=== PATIENT | male | born 1935 | race Asian ===

== ENCOUNTER 2018-11-07 10:38 | Outpatient (CLI) | payer MEDICARE, OTHER ==
--- NOTE | 2018-11-07 13:39 | XRAY Report ---
Reason: RT HEEL PAIN Procedure Date: 11/07/2018 Accession Number: [id number] / [id number] Procedure: XR - Calcaneus RT CPT Code: FULL RESULT: EXAM: RIGHT CALCANEUS RADIOGRAPHY EXAM DATE: 11/07/2018 10:45 AM. CLINICAL HISTORY: Right heel pain. COMPARISON: None. TECHNIQUE: 2 views. FINDINGS: Bones: Normal. No fractures or bone lesions. Joints: Normal. No subluxations. Soft Tissues: Calcified anterior tibial and posterior tibial arteries as well as dorsalis pedis and deep arch, peripheral arterial disease. IMPRESSION: Peripheral arterial disease. RADIA
== END 2018-11-07 10:39 | disposition home or self-care (01) ==
LOC: DI 10:38
PROVIDERS: ATTEND Podiatrist
DX: I70.208 Unspecified atherosclerosis of native arteries of extremities, other extremity (principal)

== ENCOUNTER 2018-11-24 09:04 | Outpatient (CLI) | payer MEDICARE, OTHER ==
--- NOTE | 2018-11-26 16:41 | Ultrasound Report ---
Reason: PAD BL Procedure Date: 11/24/2018 Accession Number: [id number] / [id number] Procedure: US - Duplex Lwr Ext Arterial Bilat CPT Code: FULL RESULT: EXAM: BILATERAL LOWER EXTREMITY ARTERIAL DOPPLER ULTRASOUND EXAM DATE: 11/24/2018 11:01 AM. CLINICAL HISTORY: Crampy leg pain. Peripheral arterial disease. COMPARISON: None. TECHNIQUE: Real-time sonographic vascular imaging was performed by the hog operator, utilizing color-flow, Doppler flow, and spectral analysis. Multiple account maintenance representative static images were saved for review. FINDINGS: Right Leg: CONTACT ASSEMBLER: PSV 72 cm/sec. Biphasic waveform. PSFA: PSV 76 cm/sec. Biphasic waveform. MSFA: PSV 72 cm/sec. Biphasic waveform. DSFA: PSV 76 cm/sec. Biphasic waveform. PFA: PSV 60 cm/sec. Biphasic waveform. POP: PSV 67 cm/sec. Biphasic waveform. DOMINIQUE: PSV 62 cm/sec. Biphasic waveform. WINE MANAGER: PSV 96 cm/sec. Biphasic waveform. PER: PSV 17 cm/sec. Biphasic waveform. DPA: PSV 86 cm/sec. Triphasic waveform. Left Leg: CONTACT ASSEMBLER: PSV 81 cm/sec. Biphasic waveform. PSFA: PSV 80 cm/sec. Biphasic waveform. MSFA: PSV 88 cm/sec. Biphasic waveform. DSFA: PSV 63 cm/sec. Biphasic waveform. PFA: PSV 61 cm/sec. Biphasic waveform. POP: PSV 60 cm/sec. Biphasic waveform. DOMINIQUE: PSV 62 cm/sec. Biphasic waveform. WINE MANAGER: PSV 96 cm/sec. Biphasic waveform. PER: PSV 62 cm/sec. Biphasic waveform. DPA: PSV 79 cm/sec. Biphasic waveform. IMPRESSION: No flow-limiting stenosis in either lower extremity arterial system. RADIA
== END 2018-11-24 09:05 | disposition home or self-care (01) ==
LOC: DI 09:04
PROVIDERS: ATTEND Podiatrist
DX: I73.9 Peripheral vascular disease, unspecified (principal)
CPT/HCPCS: 93925

== ENCOUNTER 2021-03-21 17:22 | Emergency (ER) | payer MEDICARE, OTHER ==
--- NOTE | 2021-03-21 17:46 | ED Physician Documentation ---
PD HPI ABD PAIN - Stated complaint Stated Complaint: ABD PX - Chief complaint Chief Complaint: Abd Pain - History obtained from History obtained from: Patient, Family - Additional information Additional information: 86-year-old gentleman with history of Crohn's disease, he had a bowel obstruction roughly 20 years ago necessitating ex lap and bowel resection. He has had a few medically managed obstruction since then. He was doing very well on sulfasalazine but it sounds like it was recently taken off the market or it is not being manufactured anymore. He was switched over to mesalamine which she is a little bit upset about because he is allergic to it. The last 4 days may be a week he has developed distended abdomen with right lower quadrant pain and decreased flatus but did have a small bowel movement today. Review of Systems Ten Systems: 10 systems reviewed and negative Constitutional: denies: Fever, Chills Ears: reports: Reviewed and negative Nose: reports: Reviewed and negative Throat: reports: Reviewed and negative Cardiac: reports: Reviewed and negative PD PAST MEDICAL HISTORY - Past Medical History Cardiovascular: None Respiratory: None Endocrine/Autoimmune: HyPOthyroidism GI: Crohn's disease : None HEENT: Chronic sinusitis Psych: None Musculoskeletal: None Derm: None - Past Surgical History Past Surgical History: Yes General: Appendectomy, Bowel surgery - Present Medications Home Medications: Ambulatory Orders Medication Instructions Recorded Confirmed Folic Acid 1 tab PO DAILY 05/21/15 03/22/21 Iron,Carb/Vit C/Vit B12/Folic 1 tab PO DAILY 05/21/15 03/22/21 [Iron 100 Plus Tablet] Levothyroxine [Synthroid] 1 tab DAILY 05/21/15 03/22/21 Cholecalciferol (Vitamin D3) 1 cap PO DAILY 03/22/21 03/22/21 [Vitamin D3] Cyanocobalamin (Vitamin B-12) 2,000 mcg PO DAILY 03/22/21 03/22/21 [Vitamin B-12] Mesalamine [Lialda] 1 tab PO DAILY 03/22/21 03/22/21 - Allergies Allergies/Adverse Reactions: Allergies Allergy/AdvReac Type Severity Reaction Status Date / Time mesalamine [From Pentasa] AdvReac Unknown Verified 03/21/21 17:28 - Social History Does the pt smoke?: No Smoking Status: Former smoker Does the pt drink ETOH?: Yes PD ED PE NORMAL - Vitals Vital signs reviewed: Yes - General General: Alert and oriented X 3, No acute distress - HEENT HEENT: PERRL, EOMI - Neck Neck: Supple, no meningeal sign, No bony TTP - Cardiac Cardiac: RRR, No murmur - Respiratory Respiratory: No respiratory distress, Clear bilaterally - Abdomen Abdomen: Other (Distended tympanic abdomen with diffuse tenderness and hyperactive bowel tones) - Back Back: No CVA TTP, No spinal TTP - Derm Derm: Normal color, Warm and dry - Extremities Extremities: No edema, No calf tenderness / cord - Neuro Neuro: Alert and oriented X 3, Normal speech Results - Vitals Vitals: Vital Signs - 24 hr 03/22/21 03/22/21 03/22/21 00:00 00:04 00:47 Temperature 36.3 C L Heart Rate 78 87 75 Respiratory 16 16 16 Rate Blood Pressure 135/86 H 135/76 H 132/75 H O2 Saturation 99 99 95 03/22/21 03/22/21 03/22/21 01:14 01:48 02:24 Temperature 35.8 C L Heart Rate 78 75 70 Respiratory 16 18 16 Rate Blood Pressure 162/82 H 127/68 129/72 O2 Saturation 98 98 99 03/22/21 03/22/21 03/22/21 03:00 03:53 04:30 Temperature 36.2 C L Heart Rate 67 71 91 Respiratory 18 16 18 Rate Blood Pressure 138/69 H 131/68 H 116/87 H O2 Saturation 97 95 100 03/22/21 03/22/21 03/22/21 05:06 06:43 08:22 Temperature 36.3 C L Heart Rate 89 72 77 Respiratory 16 14 16 Rate Blood Pressure 148/86 H 136/69 H 138/73 H O2 Saturation 98 97 98 03/22/21 03/22/21 03/22/21 12:00 14:00 16:00 Temperature 36.5 C Heart Rate 87 68 74 Respiratory 16 16 16 Rate Blood Pressure 156/81 H 139/71 H 142/80 H O2 Saturation 100 97 98 03/22/21 03/22/21 03/22/21 18:26 20:08 22:00 Temperature Heart Rate 89 87 68 Respiratory 18 18 19 Rate Blood Pressure 166/74 H 140/88 H 133/69 H O2 Saturation 98 100 98 Oxygen O2 Source Room air - Labs Labs: Microbiology 03/21/21 18:04 Urine Culture - Final Urine,Clean Catch No growth Laboratory Tests 03/21/21 03/21/21 03/21/21 17:45 17:45 18:04 WBC 6.0 RBC 3.92 L Hgb 14.0 Hct 40.1 L MCV 102.3 H MCH 35.7 H MCHC 34.9 RDW 12.2 Plt Count 176 MPV 8.8 Neut # (Auto) 4.4 Lymph # (Auto) 0.6 L Island # (Auto) 0.9 Eos # (Auto) 0.0 Baso # (Auto) 0.0 Absolute Nucleated RBC 0.00 Nucleated RBC % 0.0 Sodium 138 Potassium 4.3 Chloride 99 L Carbon Dioxide 31 Anion Gap 8.0 BUN 17 Creatinine 0.8 Estimated GFR (MDRD) 92 Glucose 118 H Calcium 10.1 Total Bilirubin 1.0 AST 56 H ALT 78 H Alkaline Phosphatase 93 Total Protein 7.8 Albumin 4.1 Globulin 3.7 Albumin/Globulin Ratio 1.1 Lipase 63 H Urine Color YELLOW Urine Clarity HAZY Urine pH 5.5 Ur Specific [place] >=1.030 H Urine Protein 30 H Urine Glucose (UA) NEGATIVE Urine Ketones TRACE Urine Occult Blood NEGATIVE Urine Nitrite NEGATIVE Urine Bilirubin NEGATIVE Urine Urobilinogen 1 (NORMAL) Ur Leukocyte Esterase TRACE H Urine RBC 0-5 Urine WBC 6-10 H Ur Squamous Epith Cells NONE SEEN Urine Bacteria Few Ur Microscopic Review INDICATED Urine Culture Comments INDICATED Nasal Adenovirus (PCR) Nasal B. parapertussis DNA (PCR) Nasal Coronavir 229E PCR Nasal Coronavir HKU1 PCR Nasal Coronavir NL63 PCR Nasal Coronavir OC43 PCR Nasal Enterovir/Rhinovir PCR Nasal Influenza B PCR Nasal Influenza A PCR Nasal Parainfluen 1 PCR Nasal Parainfluen 2 PCR Nasal Parainfluen 3 PCR Nasal Parainfluen 4 PCR Nasal RSV (PCR) Nasal B.pertussis DNA PCR Nasal C.pneumoniae (PCR) Vazquez Human Metapneumo PCR Nasal M.pneumoniae (PCR) Nasal SARS-CoV-2 (PCR) 03/21/21 21:06 WBC RBC Hgb Hct MCV MCH MCHC RDW Plt Count MPV Neut # (Auto) Lymph # (Auto) Island # (Auto) Eos # (Auto) Baso # (Auto) Absolute Nucleated RBC Nucleated RBC % Sodium Potassium Chloride Carbon Dioxide Anion Gap BUN Creatinine Estimated GFR (MDRD) Glucose Calcium Total Bilirubin AST ALT Alkaline Phosphatase Total Protein Albumin Globulin Albumin/Globulin Ratio Lipase Urine Color Urine Clarity Urine pH Ur Specific [place] Urine Protein Urine Glucose (UA) Urine Ketones Urine Occult Blood Urine Nitrite Urine Bilirubin Urine Urobilinogen Ur Leukocyte Esterase Urine RBC Urine WBC Ur Squamous Epith Cells Urine Bacteria Ur Microscopic Review Urine Culture Comments Nasal Adenovirus (PCR) NOT DETECTED Nasal B. parapertussis DNA (PCR) NOT DETECTED Nasal Coronavir 229E PCR NOT DETECTED Nasal Coronavir HKU1 PCR NOT DETECTED Nasal Coronavir NL63 PCR NOT DETECTED Nasal Coronavir OC43 PCR NOT DETECTED Nasal Enterovir/Rhinovir PCR NOT DETECTED Nasal Influenza B PCR NOT DETECTED Nasal Influenza A PCR NOT DETECTED Nasal Parainfluen 1 PCR NOT DETECTED Nasal Parainfluen 2 PCR NOT DETECTED Nasal Parainfluen 3 PCR NOT DETECTED Nasal Parainfluen 4 PCR NOT DETECTED Nasal RSV (PCR) NOT DETECTED Nasal B.pertussis DNA PCR NOT DETECTED Nasal C.pneumoniae (PCR) NOT DETECTED Vazquez Human Metapneumo PCR NOT DETECTED Nasal M.pneumoniae (PCR) NOT DETECTED Nasal SARS-CoV-2 (PCR) NOT DETECTED PD MEDICAL DECISION MAKING - ED course ED course: 86-year-old gentleman with history of Crohn's and ileocolic anastomosis about 20 years ago for a bowel obstruction presents with symptoms of a bowel obstruction but hyperactive bowel tones. Labs are generally unremarkable. CT is consistent with high-grade bowel obstruction at ileocolic anastomosis. He had a colonoscopy about 3 or 4 months ago noting stricture at that junction. Case discussed by phone with our on-call surgeon, Dr. Whitten who said she would be happy to consult but feels he is not a surgical candidate for this facility. We called [facility], they have no beds open, that is where his waste picker is. I discussed the case with Dr. Bear Dean, GI at [facility] and reviewed the case and diagnostics so far. He states that generally dilation from below is not standard of care as the perforation rate is fairly high. He recommends a low residue diet with bowel rest initially and Solumedrol 40mg IV TID. Update: March 22, 2021 8:05 PM. Patient examined at bedside. He has been passing some flatus. Pain is tolerable. Still no beds available at [facility] or [facility] today. On examination he is still distended but has bowel sounds. We will start sips of clears. Plan on x-ray repeat labs in the morning. Departure - Departure Clinical Impression: Colonic stricture Bowel obstruction Qualifiers: Intestinal obstruction type: other intestinal obstruction Intestinal obstruction extent: complete Qualified Code(s): K56.691 - Other complete intestinal obstruction Crohn disease Qualifiers: Gastrointestinal tract location: unspecified location Digestive disease complication type: with intestinal obstruction Qualified Code(s): K50.912 - Crohn's disease, unspecified, with intestinal obstruction Condition: Stable
[2021-03-21] MEDS ORDERED: IOVERSOL 320 50 ML VIAL ONE (17:51)
[2021-03-21] MEDS ORDERED: IOPAMIDOL-300 50 ML VIAL ONE (17:51)
[2021-03-21 17:56] LABS: BASOPHILS % (AUTO) 0.5 %; EOSINOPHILS % (AUTO) 0.2 %; HCT - HEMATOCRIT 40.1 % (42.0-52.0); LYMPHOCYTES # (AUTO) 0.6 10^3/uL (1.5-3.5); LYMPHOCYTES % (AUTO) 10.3 %; MEAN CORPUSCULAR HEMOGLOBIN 35.7 pg (27.0-31.0); MEAN CORPUSCULAR HGB CONC 34.9 g/dL (32.0-36.0); MEAN CORPUSCULAR VOLUME 102.3 fL (80.0-94.0); MEAN PLATELET VOLUME 8.8 fL (7.4-11.4); MONOCYTES # (AUTO) 0.9 10^3/uL (0.0-1.0); MONOCYTES % (AUTO) 15.4 %; NEUTROPHILS # (AUTO) 4.4 10^3/uL (1.5-6.6); NEUTROPHILS % (AUTO) 73.3 %; PLT - PLATELET COUNT 176 10^3/uL (130-450); RED BLOOD COUNT 3.92 10^6/uL (4.70-6.10); RED CELL DISTRIBUTION WIDTH 12.2 % (12.0-15.0)
[2021-03-21 18:10] LABS: GLUCOSE, URINE (UA) NEGATIVE (NEGATIVE); KETONES,URINE (UA) TRACE mg/dL (NEGATIVE); LEUKOCYTE ESTERASE, URINE TRACE (NEGATIVE); NITRITE,URINE NEGATIVE (NEGATIVE); OCCULT BLOOD,URINE NEGATIVE (NEGATIVE); PH,URINE 5.5 PH (5.0-7.5); PROTEIN,URINE 30 mg/dL (NEGATIVE); UROBILINOGEN,URINE 1 (NORMAL) E.U./dL (NORMAL)
[2021-03-21 18:10] LABS: ALBUMIN 4.1 g/dL (3.2-5.5); ALBUMIN/GLOBULIN RATIO 1.1 (1.0-2.2); CALCIUM 10.1 mg/dL (8.5-10.3); CREATININE 0.8 mg/dL (0.6-1.2); POTASSIUM 4.3 mmol/L (3.5-5.0); TOTAL PROTEIN 7.8 g/dL (6.7-8.2)
[2021-03-21 18:16] LABS: BILIRUBIN,URINE NEGATIVE (NEGATIVE); CLARITY,URINE HAZY (CLEAR); ICTOTEST,URINE NEGATIVE
[2021-03-21 18:27] LABS: BACTERIA,URINE Few /HPF (None Seen); RBC,URINE 0-5 /HPF (0-5); SQUAMOUS EPITHELIAL CELL,UR NONE SEEN (<= Few)
[2021-03-21] MEDS ORDERED: IOVERSOL 320 50 ML VIAL PO ONE (19:36)
[2021-03-21] MEDS ORDERED: IOPAMIDOL-300 50 ML VIAL PO ONE (19:39)
--- NOTE | 2021-03-21 19:50 | CT Report ---
PROCEDURE: Abdomen/Pelvis W INDICATIONS: IV and PO, abd pain CONTRAST: IV CONTRAST: Isovue 300 ml: 100 PO CONTRAST: Optiray 320 ml50 TECHNIQUE: After the administration of IV and oral contrast, 5 mm thick sections acquired from the diaphragms to the symphysis. 5 mm thick coronal and sagittal reformats were acquired. For radiation dose reducti on, the following was used: automated exposure control, adjustment of mA and/or kV according to thelma ent size. COMPARISON: CT dated 05/21/2015 FINDINGS: Image quality: Excellent. ABDOMEN: Lung bases: Lung bases are clear. Heart size is normal. Solid organs: Liver and spleen are normal in size and enhancement. Gallbladder is within normal harrell its Biliary system is non dilated. Pancreas enhances normally. No adrenal nodules. Kidneys demons trate normal size and enhancement, without hydronephrosis. Peritoneum and bowel: Stomach is moderately distended. There are multiple moderately to severely dila claudia loops of small bowel. The point of obstruction appears to be at the ileocecal anastomosis. Colon is nondistended. No free fluid or air. Nodes and vessels: No retroperitoneal or mesenteric adenopathy by size criteria. Aorta and inferior vena cava are normal in size. Miscellaneous: No ventral hernias. PELVIS: Genitourinary: Bladder wall thickness is normal. Miscellaneous: No inguinal hernias or adenopathy. Bones: No suspicious bony lesions. No vertebral body compression fractures. IMPRESSION: 1. Moderate to high-grade small bowel obstruction which appears to be at the ileocolic anastomosis. Reviewed by: Scott Bautista MD on 03/21/2021 7:48 PM PDT Approved by: Scott Bautista MD on 03/21/2021 7:48 PM PDT Station ID: [id number]
[2021-03-21] MEDS ORDERED: HYDROmorphone 1 MG/ML CARPUJECT IVP STA (20:06)
[2021-03-21] MEDS ORDERED: D5.45NS W/20 MEQ KCL 1,000 ML IV STA (20:15)
[2021-03-21] MEDS ORDERED: methylPREDNISolone SUCCINATE 40 MG/ML VIAL IVP STA (20:42)
[2021-03-21 22:07] LABS: CORONAVIRUS 229E-RESP PCR NOT DETECTED; CORONAVIRUS HKU1-RESP PCR NOT DETECTED; CORONAVIRUS NL63-RESP PCR NOT DETECTED; CORONAVIRUS OC43-RESP PCR NOT DETECTED; HUMAN METAPNEUMOVIRUS NOT DETECTED; INFLUENZA A- RESP PCR PANEL NOT DETECTED; RHINOVIRUS/ENTEROVIRUS NOT DETECTED; SARS-CoV-2 -RESP PCR PANEL NOT DETECTED
[2021-03-21 22:08] LABS: B. PARAPERTUSSIS- RESP PCR PAN NOT DETECTED; B. PERTUSSIS- RESP PCR PANEL NOT DETECTED; C. PNEUMONIAE- RESP PCR PANEL NOT DETECTED; INFLUENZA B - RESP PCR PANEL NOT DETECTED; M. PNEUMONIAE- RESP PCR PANEL NOT DETECTED; PARAINFLUENZA VIRUS 1 NOT DETECTED; PARAINFLUENZA VIRUS 2 NOT DETECTED; PARAINFLUENZA VIRUS 3 NOT DETECTED; PARAINFLUENZA VIRUS 4 NOT DETECTED; RSV- RESP PCR PANEL NOT DETECTED
--- NOTE | 2021-03-21 23:20 | ED Physician Documentation ---
ED Addendum - Addendum Addendum: 03/21/21 23:18 Patient endorsed to me by Dr. Stock pending transfer to [facility]. The r ecommendation is currently for medical management per discussions with [facility] surgery. Our surgeon custodial operations manager Dr. Whitten stated that he is not a candidate for admission here secondary to need for gastroenterology subspecialty services. No beds available at present at [facility], but they have a patient that may be leaving AMA so we will get regular updates. Patient in NAD, no complaints at present, pain well controlled. declining ng tube. has not had any vomitus here in ED. Note that his u/a showed +leuks but he is not having any urinary sx or fever. CT without evidence of stones/hydro. Will f/u urine culture. 03/21/21 23:35 03/21/21 23:35 03/22/21 01:27 Pain now 3/10. No new updates from [facility] but they said they will call back when bed is available. 03/22/21 05:12 Called [facility] - no beds available. Patient in NAD overnight, awaiting transfer.
[2021-03-22] MEDS ORDERED: HYDROmorphone 1 MG/ML CARPUJECT IVP PRN (01:37)
[2021-03-22] MEDS ORDERED: methylPREDNISolone SUCCINATE 40 MG/ML VIAL IVP STA (11:14)
[2021-03-22] MEDS ORDERED: D5.45NS W/20 MEQ KCL 1,000 ML IV STA (11:28)
[2021-03-22] MEDS ORDERED: D5.45NS W/20 MEQ KCL 1,000 ML IV SCH (12:00)
[2021-03-22] MEDS: methylPREDNISolone SUCCINATE 40 MG/ML VIAL IVP SCH (19:51)
[2021-03-22] MEDS: D5.45NS W/20 MEQ KCL 1,000 ML IV SCH (20:03)
[2021-03-23] MEDS: methylPREDNISolone SUCCINATE 40 MG/ML VIAL IVP SCH ×3 (05:59→22:00)
[2021-03-23 06:12] LABS: BASOPHILS % (AUTO) 0.3 %; HCT - HEMATOCRIT 37.5 % (42.0-52.0); HGB - HEMOGLOBIN 12.8 g/dL (14.0-18.0); LYMPHOCYTES # (AUTO) 0.5 10^3/uL (1.5-3.5); LYMPHOCYTES % (AUTO) 8.8 %; MEAN CORPUSCULAR HEMOGLOBIN 34.7 pg (27.0-31.0); MEAN CORPUSCULAR HGB CONC 34.1 g/dL (32.0-36.0); MEAN CORPUSCULAR VOLUME 101.6 fL (80.0-94.0); MEAN PLATELET VOLUME 8.6 fL (7.4-11.4); MONOCYTES # (AUTO) 0.6 10^3/uL (0.0-1.0); MONOCYTES % (AUTO) 10.1 %; NEUTROPHILS # (AUTO) 4.9 10^3/uL (1.5-6.6); NEUTROPHILS % (AUTO) 80.5 %; PLT - PLATELET COUNT 177 10^3/uL (130-450); RED BLOOD COUNT 3.69 10^6/uL (4.70-6.10); RED CELL DISTRIBUTION WIDTH 11.9 % (12.0-15.0); WHITE BLOOD COUNT 6.1 x10^3/uL (4.8-10.8)
[2021-03-23 06:17] LABS: CALCIUM 8.9 mg/dL (8.5-10.3); CREATININE 0.8 mg/dL (0.6-1.2); POTASSIUM 4.5 mmol/L (3.5-5.0)
--- NOTE | 2021-03-23 08:06 | XRAY Report ---
PROCEDURE: Abdomen 1 View X-Ray INDICATIONS: f/u sbo TECHNIQUE: 1 view of the abdomen were acquired. COMPARISON: CT abdomen pelvis 03/21/2021 FINDINGS: Surgical changes and devices: None. Bowel: No pneumoperitoneum. The bowel gas pattern continues to demonstrate dilated fluid-filled loo ps of bowel, relatively similar to prior exam. Soft tissues: No masses; visualized solid organ contours appear normal in size. No suspicious abdom inal calcifications. Bones: No suspicious bony abnormalities. IMPRESSION: Persistent appearance of moderate to severe partial small bowel obstruction without appr eciable interval change. Reviewed by: Kassie Johnston MD on 03/23/2021 8:05 AM PDT Approved by: Kassie Johnston MD on 03/23/2021 8:05 AM PDT Station ID: [id number]
--- NOTE | 2021-03-23 09:11 | ED Physician Documentation ---
ED Addendum - Addendum Addendum: 03/23/21 09:09The patient states he slept well. He has had decreased amount of pain and feels less distended. He had tolerated some mild sips of fluids. He is continued on steroid dosing and IV fluids. Repeat blood count showed a slight decrease in his hemoglobin from 14-12.8. White count is normal. Electrolytes are okay. Abdominal x-ray series still showed air-fluid levels consistent with obstruction. He has not had any vomiting. He states he is passing flatulence but no stool movement. At this point we will continue trying liquid p.o. as tolerated. Continue IV fluids and steroids. It does not seem just yet that he is resolved enough. Still needing ongoing care.
[2021-03-23] MEDS: D5.45NS W/20 MEQ KCL 1,000 ML IV SCH ×2 (09:35→18:18)
[2021-03-24] MEDS ORDERED: DEXTROSE 5%-0.45% NACL 1,000 ML IV STA ×2 (01:45→21:57)
[2021-03-24] MEDS ORDERED: D5.45NS W/20 MEQ KCL 1,000 ML IV STA (11:33)
--- NOTE | 2021-03-24 11:37 | ED Physician Documentation ---
ED Addendum - Addendum Addendum: 03/24/21 11:34 The patient states he has had uneventful night overnight. He is feeling slightly more bloated this morning but no nausea. He has had some reflux type heartburn and belching. He has been passing flatus without any bowel movement per se. He has remained n.p.o. but states he would like to try some sips of fluids. Labs from yesterday showed normal electrolytes and kidney function. His x-rays from yesterday still has some air-fluid levels suggesting obstructive pattern. Exam today shows awake and alert and conversant. Unlabored breathing. Clear lungs and normal heart sounds. Abdominal sounds are normally active. There are some mild distention. Otherwise abdomen is soft. There is no localized tenderness. We could try oral challenge with small amounts of sips of water or ice chips and assess oral intake and tolerance. Continue with IV fluids and steroids. We are still waiting to hear if there is any bed access at [facility] or [facility]. He still remains on the wait list after unusual long time to get a transfer.
[2021-03-24] MEDS: methylPREDNISolone SUCCINATE 40 MG/ML VIAL IVP SCH (11:46)
[2021-03-25] MEDS: methylPREDNISolone SUCCINATE 40 MG/ML VIAL IVP SCH ×2 (00:17→09:38)
[2021-03-25] MEDS ORDERED: DEXTROSE 5%-0.45% NACL 1,000 ML IV STA (04:54)
[2021-03-25 06:05] VITALS: BP 115/62
[2021-03-25] MEDS: D5.45NS W/20 MEQ KCL 1,000 ML IV SCH (06:15)
[2021-03-25 07:42] LABS: BASOPHILS % (AUTO) 0.1 %; HCT - HEMATOCRIT 40.5 % (42.0-52.0); HGB - HEMOGLOBIN 13.9 g/dL (14.0-18.0); LYMPHOCYTES # (AUTO) 0.5 10^3/uL (1.5-3.5); LYMPHOCYTES % (AUTO) 6.5 %; MEAN CORPUSCULAR HEMOGLOBIN 34.8 pg (27.0-31.0); MEAN CORPUSCULAR HGB CONC 34.3 g/dL (32.0-36.0); MEAN CORPUSCULAR VOLUME 101.5 fL (80.0-94.0); MEAN PLATELET VOLUME 8.2 fL (7.4-11.4); MONOCYTES # (AUTO) 0.3 10^3/uL (0.0-1.0); MONOCYTES % (AUTO) 3.6 %; NEUTROPHILS # (AUTO) 6.8 10^3/uL (1.5-6.6); NEUTROPHILS % (AUTO) 88.1 %; PLT - PLATELET COUNT 167 10^3/uL (130-450); RED BLOOD COUNT 3.99 10^6/uL (4.70-6.10); RED CELL DISTRIBUTION WIDTH 11.9 % (12.0-15.0); WHITE BLOOD COUNT 7.7 x10^3/uL (4.8-10.8)
[2021-03-25 07:51] LABS: CREATININE 0.9 mg/dL (0.6-1.2); POTASSIUM 4.5 mmol/L (3.5-5.0)
--- NOTE | 2021-03-25 08:23 | XRAY Report ---
PROCEDURE: Abdomen 1 View X-Ray INDICATIONS: F/U SBO TECHNIQUE: 1 view of the abdomen were acquired. COMPARISON: 03/23/2021 FINDINGS: Surgical changes and devices: None. Bowel: No pneumoperitoneum. Gaseous distention of several loops of small bowel which are decreased i n diameter compared to 03/23/2021. Contrast is noted in the right colon. Soft tissues: No masses; visualized solid organ contours appear normal in size. No suspicious abdom inal calcifications. Bones: No suspicious bony abnormalities. IMPRESSION: Distended loops of small bowel decreased in size compared to 03/23/2021. Reviewed by: Suma Mesa MD, PhD on 03/25/2021 8:22 AM PDT Approved by: Suma Mesa MD, PhD on 03/25/2021 8:22 AM PDT Station ID: [id number]
--- NOTE | 2021-03-25 08:39 | ED Physician Documentation ---
ED Addendum - Addendum Addendum: 03/25/21 08:38 Patient seen and examined at bedside, still no disposition as far as tr ansferring him somewhere. He is feeling much better this morning, much less distention and copious flatus. He has been sipping on clears and we will accelerate that a bit. X-ray shows improvement in the distended loops of small bowel. His solar electric/photovoltaic installer was paged for consultation. 03/25/21 10:42 WhoI spoke with his solar electric/photovoltaic installer, Dr. Monge recommends a steroid taper, specifically prednisone 30 mg a day for a week, 20 mg a day for a week, then 10 mg a day for a week. He will see him in follow-up. 03/25/21 13:43 We advanced his diet this morning and he did quite well on clears. He would like to go home, he will be on a clear liquid diet for the next 24 hours and then advancing to a low residue diet after that. Disposition: Discharged home after prolonged ED stay due to lack of tertiary disposition options Condition: Stable
== END 2021-03-25 13:01 | disposition home or self-care (01) ==
LOC: ED 17:22
DX: K56.609 Unspecified intestinal obstruction, unspecified as to partial versus complete obstruction (principal); K56.691 Other complete intestinal obstruction; K50.90 Crohn's disease, unspecified, without complications; Z87.891 Personal history of nicotine dependence; Z20.822 Contact with and (suspected) exposure to COVID-19
CPT/HCPCS: 36415; 74018; 74177; 80048; 80053; 81001; 83690; 85025; 87086; 87631; 96365; 96366; 96367; 96375; 96376; 99284; 99285; J1170; Q9967; 0202U; 81003

== ENCOUNTER 2023-01-19 08:59 | Outpatient (CLI) | payer MEDICARE, OTHER | END 2023-01-19 09:00 | disposition home or self-care (01) | LOC: DI 08:59 | PROVIDERS: ATTEND Family Medicine | DX: R01.1 Cardiac murmur, unspecified (principal) | CPT/HCPCS: 93306 ==